=== PATIENT | female | born 1940 | race Caucasian/White ===

== ENCOUNTER 2018-03-15 10:48 | Outpatient (CLI) | payer MEDICARE | END 2018-03-15 10:49 | disposition home or self-care (01) | LOC: BICMAMMO 10:48 | PROVIDERS: ATTEND Obstetrics & Gynecology | DX: Z12.31 Encounter for screening mammogram for malignant neoplasm of breast (principal); R92.1 Mammographic calcification found on diagnostic imaging of breast | CPT/HCPCS: 77063; 77067 ==

== ENCOUNTER 2019-03-17 09:20 | Outpatient (CLI) | payer MEDICARE ==
--- NOTE | 2019-03-22 06:45 | MMO ---
Bilateral MAMMO Bilat Screen [facility]. CLINICAL HISTORY: Patient is 78 years old and is seen for screening. The patient has the following family history of breast cancer: paternal aunt and cousin female. The patient has no personal history of cancer. VIEWS: The views performed were: bilateral craniocaudal with tomosynthesis and bilateral mediolateral oblique with tomosynthesis. FILMS COMPARED: The present examination has been compared to prior imaging studies performed at [facility] on 02/08/2015, 02/11/2016, 02/23/2017 and 03/15/2018. MAMMOGRAM FINDINGS: The breasts are almost entirely fat. There are benign appearing calcifications seen in both breasts. There are no suspicious masses, suspicious calcifications, or new areas of architectural distortion. IMPRESSION: THERE IS NO MAMMOGRAPHIC EVIDENCE OF MALIGNANCY. A ROUTINE FOLLOW-UP MAMMOGRAM IN 1 YEAR IS RECOMMENDED. THE RESULTS OF THIS EXAM WERE SENT TO THE PATIENT. ACR BI-RADS Category 2 - Benign finding MAMMOGRAPHY NOTE: 1. A negative mammogram report should not delay a biopsy if a dominant of clinically suspicious mass is present. 2. Approximately 10% to 15% of breast cancers are not detected by mammography. 3. Adenosis and dense breasts may obscure an underlying neoplasm. Reported by: MEME MOONEY MD Electonically Signed: [id number]
== END 2019-03-17 09:21 | disposition home or self-care (01) ==
LOC: BICMAMMO 09:20
PROVIDERS: ATTEND Obstetrics & Gynecology
DX: Z12.31 Encounter for screening mammogram for malignant neoplasm of breast (principal); Z80.3 Family history of malignant neoplasm of breast
CPT/HCPCS: 77063; 77067

== ENCOUNTER 2020-09-26 11:03 | Outpatient (CLI) | payer MEDICARE ==
--- NOTE | 2020-09-26 11:39 | RAD ---
Right hip 2 views HISTORY: Right hip pain. FINDINGS: Mild joint space narrowing and osteophytosis. Femoral head contour is maintained. No acute fracture or dislocation. Vertically oriented short metallic bars overlying the sacrum on the AP view are not present on the la teral view and likely represent extrinsic artifact. IMPRESSION : Very mild osteoarthritic changes right hip.
== END 2020-09-26 11:04 | disposition home or self-care (01) ==
LOC: SCSRAD 11:03
PROVIDERS: ATTEND Family Medicine
DX: M25.551 Pain in right hip (principal); M54.5 Low back pain; M16.11 Unilateral primary osteoarthritis, right hip

== ENCOUNTER 2021-04-11 10:53 | Outpatient (CLI) | payer MEDICARE | END 2021-04-11 10:54 | disposition home or self-care (01) | LOC: BICMAMMO 10:53 | PROVIDERS: ATTEND Family Medicine | DX: Z12.31 Encounter for screening mammogram for malignant neoplasm of breast (principal); Z80.3 Family history of malignant neoplasm of breast | CPT/HCPCS: 77063; 77067 ==

== ENCOUNTER 2022-07-03 11:14 | Outpatient (CLI) | payer OTHER | END 2022-07-03 11:15 | disposition home or self-care (01) | LOC: BICMAMMO 11:14 | PROVIDERS: ATTEND Family Medicine | DX: Z12.31 Encounter for screening mammogram for malignant neoplasm of breast (principal); Z80.3 Family history of malignant neoplasm of breast | CPT/HCPCS: 77063; 77067 ==

== ENCOUNTER 2024-02-05 13:31 | Outpatient (CLI) | payer OTHER | END 2024-02-05 13:32 | disposition home or self-care (01) | LOC: BICCT 13:31 | PROVIDERS: ATTEND Family Medicine | DX: J90 Pleural effusion, not elsewhere classified (principal); R91.8 Other nonspecific abnormal finding of lung field; J98.6 Disorders of diaphragm | CPT/HCPCS: 71250 ==

== ENCOUNTER 2024-05-19 09:39 | Outpatient (CLI) | payer OTHER | END 2024-05-19 09:40 | disposition home or self-care (01) | LOC: RAD 09:39 | PROVIDERS: ATTEND Internal Medicine Critical Care Medicine | DX: R06.00 Dyspnea, unspecified (principal) | CPT/HCPCS: 71046 ==